=== PATIENT | female | born 1990 | race Caucasian/White ===

== ENCOUNTER 2016-10-22 23:14 | Emergency (ER) | payer OTHER ==
[~2016-10-22] VITALS: Ht 162.6 cm; Wt 53.5 kg
[2016-10-22 23:29] VITALS: BP 109/77
--- NOTE | 2016-10-22 23:44 | NUR ---
AMBULATED TO ER BED 8
--- NOTE | 2016-10-22 23:49 | NUR ---
Patient being evaluated by physician at bedside.
[2016-10-22] MEDS ORDERED: KETOROLAC 60 MG/2 ML VIAL IM ONE (23:50)
[2016-10-23 00:25] VITALS: BP 99/62
--- NOTE | 2016-10-23 00:25 | NUR ---
Patient discharged with v/s stable. Written and verbal after care instructions given and explained. Patient alert, oriented and verbalized understanding of instructions. Ambulatory with steady gait. All questions addressed prior to discharge. ID band removed. Patient advised to follow up with PMD. Rx of Motrin and [place] given. Patient educated on indication of medication including possible reaction and side effects. Opportunity to ask questions provided and answered.
== END 2016-10-23 00:25 | disposition home or self-care (01) ==
LOC: MED 23:14
DX: M54.5 Low back pain (principal)
CPT/HCPCS: 96372; 99283; J1885

== ENCOUNTER 2017-01-19 18:38 | Emergency (ER) | payer OTHER ==
[~2017-01-19] VITALS: Ht 165.1 cm; Wt 54.0 kg
[2017-01-19 18:48] VITALS: BP 120/71
--- NOTE | 2017-01-19 18:50 | NUR ---
Patient ambulated to bed 02.
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
--- NOTE | 2017-01-19 19:03 | NUR ---
Pt report given to WENDY BRANCH. Transfer of care at this time.
--- NOTE | 2017-01-19 19:03 | NUR ---
Sonia billings in ED - 01/19/17 at 1907 by [email or web address] Pt report given to WENDY LINARES. Transfer of care at this time.
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
[2017-01-19 20:00] VITALS: BP 120/71
--- NOTE | 2017-01-19 20:00 | NUR ---
Patient discharged with v/s stable. Written and verbal after care instructions given and explained. Patient alert, oriented and verbalized understanding of instructions. Ambulatory with steady gait. All questions addressed prior to discharge. ID band removed. Patient advised to follow up with PMD. Rx of naprosyn 500mg given. Patient educated on indication of medication including possible reaction and side effects. Opportunity to ask questions provided and answered.
== END 2017-01-19 20:00 | disposition home or self-care (01) ==
LOC: MED 18:38
DX: S60.221A Contusion of right hand, initial encounter (principal); W22.02XA Walked into lamppost, initial encounter; Y93.89 Activity, other specified; Y92.89 Other specified places as the place of occurrence of the external cause; Y99.8 Other external cause status
CPT/HCPCS: 73130; 99284

== ENCOUNTER 2017-07-05 07:58 | Emergency (ER) | payer OTHER ==
[~2017-07-05] VITALS: Ht 162.6 cm; Wt 54.4 kg
[2017-07-05 08:01] VITALS: BP 126/79
--- NOTE | 2017-07-05 08:04 | NUR ---
PT AMBULATED TO ER CHAIR C
--- NOTE | 2017-07-05 08:05 | NUR ---
26/F BIB SELF WITH C/O LEFT EYE DISCHARGE & ITCHING SINCE 0600 THIS AM. SKIN IS PINK/WARM/DRY; AAOX4 WITH EVEN AND STEADY GAIT; LUNGS CLEAR BL; HR EVEN AND REGULAR; PT DENIES ANY FEVER, CP, SOB, OR COUGH AT THIS TIME; PATIENT STATES PAIN OF 0/10 AT THIS TIME.
--- NOTE | 2017-07-05 08:13 | NUR ---
Patient being evaluated by DR MUNGUIA at bedside.
[2017-07-05 08:45] VITALS: BP 121/72
--- NOTE | 2017-07-05 08:45 | NUR ---
Patient discharged with v/s stable. Written and verbal after care instructions given and explained. Patient alert, oriented and verbalized understanding of instructions. Ambulatory with steady gait. All questions addressed prior to discharge. ID band removed. Patient advised to follow up with PMD. Rx of ERYTHROMYCIN given. Patient educated on indication of medication including possible reaction and side effects. Opportunity to ask questions provided and answered.
== END 2017-07-05 08:45 | disposition home or self-care (01) ==
LOC: MED 07:58
DX: H10.89 Other conjunctivitis (principal); A48.8 Other specified bacterial diseases
CPT/HCPCS: 99283

== ENCOUNTER 2017-12-05 18:32 | Emergency (ER) | payer OTHER ==
[~2017-12-05] VITALS: Ht 162.6 cm; Wt 55.3 kg
[2017-12-05 18:37] VITALS: BP 116/66
[2017-12-05 20:25] VITALS: BP 116/66
== END 2017-12-05 20:25 | disposition home or self-care (01) ==
LOC: MED 18:32
DX: S90.32XA Contusion of left foot, initial encounter (principal); W20.8XXA Other cause of strike by thrown, projected or falling object, initial encounter; Y93.89 Activity, other specified; Y92.89 Other specified places as the place of occurrence of the external cause; Y99.8 Other external cause status
CPT/HCPCS: 73630; 99284; Q0092

== ENCOUNTER 2018-10-06 10:25 | Emergency (ER) | payer OTHER ==
[~2018-10-06] VITALS: Ht 162.6 cm; Wt 56.7 kg
[2018-10-06 10:35] VITALS: BP 115/69
[2018-10-06] MEDS ORDERED: ALBUTEROL SULFATE/IPRATROPIU 3 ML SOL IH ONE (10:45)
[2018-10-06 11:38] VITALS: BP 118/65
== END 2018-10-06 11:38 | disposition home or self-care (01) ==
LOC: MED 10:25
DX: J40 Bronchitis, not specified as acute or chronic (principal); J30.9 Allergic rhinitis, unspecified
CPT/HCPCS: 71045; 81002; 81025; 94640; 99283; J7620

== ENCOUNTER 2019-01-20 02:58 | Emergency (ER) | payer OTHER ==
[~2019-01-20] VITALS: Ht 165.1 cm; Wt 57.6 kg
[2019-01-20 03:28] VITALS: BP 113/72
--- NOTE | 2019-01-20 03:35 | NUR ---
FLU SWAB DONE. SENT TO LAB
--- NOTE | 2019-01-20 03:40 | NUR ---
PT TAKEN TO BED 01
--- NOTE | 2019-01-20 03:45 | NUR ---
28 FEMALE BIB MOTHER C/O COUGH WITH PHLEGM X2 WEEKS WITH FLU LIKE SYMPTOMS, PT STATES FEVER TODAY. 97.6 ORAL AFEBRILE @ THIS TIME. PT WORKS @ [employer]. HAD FLU SHOT X 3 WEEKS AGO. A/OX4; BREATHING IS REGULAR; BREATH SOUNDS CLEAR/DIMINISHED. NONPRODUCTIVE COUGH THAT CAUSES PAIN IN HER CHEST. PAIN IS A 5/10 ACUTE PAIN. DENIES N/V/D. ERMD MADE AWARE OF STATUS. PULSE OXIMETER IN PLACE. 98% ON RA; 17RR. MOTHER AT BEDSIDE. SIDE RAILX1. HX: CHRONIC COUGH; IRREGULAR PERIODS RX: PHENERGAN/CODEINE, INHALER, TYLENOL PM
[2019-01-20] MEDS ORDERED: ALBUTEROL SULFATE/IPRATROPIU 3 ML SOL IH ONE (04:30)
[2019-01-20 05:10] VITALS: BP 101/55
--- NOTE | 2019-01-20 05:10 | NUR ---
DISCHARGE PAPERS GIVEN TO PT. PT STATES RELIEF. VSS. LUNGS CLEAR BILAT. COUGH PRESENT BUT NON-PRODUCTIVE. RX OF CLARITIN, AZITHROMYCIN, AND PROMETHAZINE GIVEN. SIDE EFFECTS EXPLAINED. INSTRUCTED TO F/U WITH PCP AND WHEN TO RETURN TO ER. PT VERBALLIZED UNDERSTANDING OF DC INSTRUCTIONS. ALL QEUSTIONS ANSWERED.
== END 2019-01-20 05:10 | disposition home or self-care (01) ==
LOC: MED 02:58
DX: J02.8 Acute pharyngitis due to other specified organisms (principal); B96.89 Other specified bacterial agents as the cause of diseases classified elsewhere; J30.2 Other seasonal allergic rhinitis
CPT/HCPCS: 87804; 94640; 99283; J7620

== ENCOUNTER 2020-01-30 22:51 | Emergency (ER) | payer OTHER ==
[~2020-01-30] VITALS: Ht 165.1 cm; Wt 61.2 kg
[2020-01-30 22:56] VITALS: BP 124/80
--- NOTE | 2020-01-30 23:03 | NUR ---
URINE SAMPLE COLLECTED AT THIS TIME.
--- NOTE | 2020-01-30 23:03 | NUR ---
PT AMBULATED FROM RESTROOM TO ER BED 12 W/ STEADY GAIT.
--- NOTE | 2020-01-30 23:07 | NUR ---
29 Y/O FEMALE PRESENTED TO ED C/O ABD PAIN X 1.5 MONTHS . PT STATES HER PAIN STARTS AT EPIGASTRIC REGION AND RADIATE TO LUQ. PT DESCRIBES PAIN PINCHING ,BULGING , BURNING PAIN, VARIES FROM 5 - 8 ON PAIN SCALE. PT CURRENT PAIN 8/10. PT STATES SHE HAS NORMAL STOOL, NO C/O DIARRHEA OR CONSTIPATION. PT STATES SHE HAS BEEN TAKING NATURAL SUPPLEMENTS , BLACKSEED OIL, CHAMOMILE TEA FOR TX OF ABD PAIN W/ NO RELIEF. PT HAD T/C W/ ON MONDAY AND WAS TOLD SHE WILL NEED TO GET LABS AND A H. PYLORI TEST DONE. PT SECONDARY C/O OF ABD PAIN AFTER LIFTING WEIGHTS AT GYM. PT ABD FLAT, SOFT AND NON TENDER. ACTIVE BOWEL SOUNDS. PT RESTING IN BED, LOCKED AND IN LOWEST POSITION, HOB ELEVATED, SIDE RAIL X1. PT PLACED IN GOWN AT THIS TIME. VSS. NO ACUTE DISTRESS. ERMD MADE AWARE OF PT STATUS. PMH: DENIES NKA
--- NOTE | 2020-01-30 23:13 | NUR ---
ERMD AT BEDSIDE FOR MEDICAL EVALUATION.
[2020-01-30] MEDS ORDERED: NACL 0.9% 1,000 ML IV ONE (23:30)
[2020-01-30] MEDS ORDERED: ONDANSETRON 4 MG/2 ML VIAL IVP ONE (23:30)
[2020-01-30] MEDS ORDERED: PANTOPRAZOLE 40 MG INJ VIAL IVP ONE (23:30)
[2020-01-30] MEDS ORDERED: ALUMINUM HYD/MAG/SIMETHICONE 30 ML, DICYCLOMINE HCL LIQUID 20 MG, LIDOCAINE VISCOUS 2% ... PO ONE ×3 (23:35)
--- NOTE | 2020-01-30 23:40 | NUR ---
18 G IV LT A/C PLACED. BLOOD LABS & CULTURES COLLECTED AND HANDED TO GASOLINE DRAGLINE OPERATOR.
[2020-01-30 23:49] LABS: BASOPHILS # (AUTO) 0.1 K/uL (0.00-0.22); BASOPHILS % (AUTO) 0.6 % (0.0-2.0); EOSINOPHILS # (AUTO) 0.2 K/uL (0-0.4); EOSINOPHILS % (AUTO) 1.7 % (0.0-4.0); HEMATOCRIT 41.7 % (36-48); HEMOGLOBIN 14.3 g/dL (12.0-16.0); LYMPHOCYTES # (AUTO) 3.3 K/uL (2.5-16.5); LYMPHOCYTES % (AUTO) 29.9 % (20.5-51.1); MEAN CORPUSCULAR HEMOGLOBIN 30 pg (27-31); MEAN CORPUSCULAR HGB CONC 34 g/dL (33-37); MEAN CORPUSCULAR VOLUME 88.1 fL (80-94); MONOCYTES % (AUTO) 8.8 % (1.7-9.3); NEUTROPHILS # (AUTO) 6.6 K/uL (1.8-7.7); PLATELET COUNT (AUTO) 331 K/uL (140-450); RED BLOOD CELL COUNT(AUTO) 4.73 MIL/uL (4.20-5.40); RED CELL DISTRIBUTION WIDTH 12.4 % (11.6-13.7); WHITE BLOOD COUNT (AUTO) 11.2 K/uL (4.8-10.8)
--- NOTE | 2020-01-30 23:53 | NUR ---
PT TAKEN TO CT VIA W/C
[2020-01-30] MEDS ORDERED: LIDOCAINE VISCOUS 2% 20 ML UDC ONE (23:54)
[2020-01-30] MEDS ORDERED: DICYCLOMINE HCL LIQUID 10 MG/5 ML UDC ONE (23:55)
[2020-01-30] MEDS ORDERED: ALUMINUM HYD/MAG/SIMETHICONE 30 ML UDC ONE (23:55)
[2020-01-31 00:05] LABS: ALBUMIN 4.5 g/dL (3.4-5.0); ANION GAP 13.3 (8-16); CARBON DIOXIDE 27.3 mmol/L (21-32); CREATININE 0.6 mg/dL (0.6-1.3); POTASSIUM 3.6 mmol/L (3.5-5.1); TOTAL BILIRUBIN 0.3 mg/dL (0.0-1.0)
--- NOTE | 2020-01-31 00:18 | NUR ---
PT AMBUALTED FROM RESTROOM TO BED 12 WITH STEADY GAIT.
[2020-01-31 00:47] LABS: APPEARANCE,URINE CLEAR (CLEAR); BILIRUBIN,URINE NEGATIVE (NEGATIVE); BLOOD, URINE TRACE-I (NEGATIVE); COLOR,URINE YELLOW (YELLOW); LEUKOCYTE ESTERASE ,URINE NEGATIVE (NEGATIVE); NITRITE, URINE NEGATIVE (NEGATIVE); UGLUCOSE NEGATIVE (NEGATIVE)
--- NOTE | 2020-01-31 01:00 | NUR ---
PER PT THE ADMINISTERED GI COCKTAIL HELPED PT FEEL A LOT BETTER. KACEYD MADE AWARE.
--- NOTE | 2020-01-31 01:04 | NUR ---
EKG PERFORMED BY WENDY.
--- NOTE | 2020-01-31 01:10 | NUR ---
IV removed, catheter intact and site benign. Applied folded 4x4 gauze and tape to stop bleeding.
[2020-01-31 01:28] VITALS: BP 120/78
--- NOTE | 2020-01-31 01:28 | NUR ---
Patient discharged with v/s stable. Written and verbal after care instructions given and explained. Patient alert, oriented and verbalized understanding of instructions. Ambulatory with steady gait. All questions addressed prior to discharge. ID band removed. Patient advised to follow up with PMD. Rx of Protonix given. Patient educated on indication of medication including possible reaction and side effects. Opportunity to ask questions provided and answered.
[2020-01-31 01:44] LABS: RBC,URINE 0-5 /HPF (0-5); WBC,URINE 0-5 /HPF (0-5)
== END 2020-01-31 01:28 | disposition home or self-care (01) ==
LOC: MED 22:51
DX: R10.13 Epigastric pain (principal)
CPT/HCPCS: 36415; 74176; 80053; 81001; 81025; 83605; 83690; 84484; 85025; 93005; 96361; 96374; 96375; 99285; C9113; J2405; J7030

== ENCOUNTER 2020-03-02 15:24 | Emergency (ER) | payer OTHER ==
[~2020-03-02] VITALS: Ht 162.6 cm; Wt 55.8 kg
[2020-03-02 15:54] VITALS: BP 121/88
--- NOTE | 2020-03-02 15:59 | NUR ---
triaged and waiting in lobby.
[2020-03-02] MEDS ORDERED: KETOROLAC 30 MG/ML VIAL IM ONE (16:00)
[2020-03-02] MEDS ORDERED: HYDROcodone/APAP 5/325 MG 1 TAB TAB PO ONE (16:00)
[2020-03-02] MEDS ORDERED: HYDROcodone/APAP 5/325 MG 1 TAB TAB ONE (16:00)
--- NOTE | 2020-03-02 16:03 | NUR ---
taken to XR
[2020-03-02 17:09] VITALS: BP 121/88
--- NOTE | 2020-03-02 17:10 | NUR ---
Patient discharged with v/s stable. Written and verbal after care instructions given and explained. Patient alert, oriented and verbalized understanding of instructions. Ambulatory with steady gait. All questions addressed prior to discharge. ID band removed. Patient advised to follow up with PMD. Rx of Ibuprofen 600mg given. Patient educated on indication of medication including possible reaction and side effects. Opportunity to ask questions provided and answered.
== END 2020-03-02 17:10 | disposition home or self-care (01) ==
LOC: MED 15:24
DX: S60.222A Contusion of left hand, initial encounter (principal); W22.8XXA Striking against or struck by other objects, initial encounter; Y93.89 Activity, other specified; Y92.89 Other specified places as the place of occurrence of the external cause; Y99.8 Other external cause status
CPT/HCPCS: 73130; 99283

== ENCOUNTER 2020-10-11 13:44 | Emergency (ER) | payer OTHER ==
[~2020-10-11] VITALS: Ht 162.6 cm; Wt 59.0 kg
[2020-10-11 13:52] VITALS: BP 121/69
[2020-10-11] MEDS ORDERED: ONDANSETRON 4 MG/2 ML VIAL IVP ONE (15:55)
[2020-10-11] MEDS ORDERED: NACL 0.9% 1,000 ML IV ONE (15:55)
[2020-10-11] MEDS ORDERED: ONDANSETRON 4 MG ODT PO ONE (18:45)
--- NOTE | 2020-10-11 19:31 | NUR ---
changed Zofran order to ODT due to unanavailable bed to start IV at this time. Pt reported in lobby pt was able to tolerate water and crackers. Pt denies nausea at this time.
[2020-10-11] MEDS ORDERED: ONDA-24 SL (19:38)
[2020-10-11 19:50] VITALS: BP 115/73
--- NOTE | 2020-10-11 19:50 | NUR ---
Patient discharged with v/s stable. Written and verbal after care instructions given and explained. Patient alert, oriented and verbalized understanding of instructions. Ambulatory with steady gait. All questions addressed prior to discharge. ID band removed. Patient advised to follow up with PMD. Rx of ZOFRAN ODT given. Patient educated on indication of medication including possible reaction and side effects. Opportunity to ask questions provided and answered.
== END 2020-10-11 19:50 | disposition home or self-care (01) ==
LOC: MED 13:44
DX: R11.2 Nausea with vomiting, unspecified (principal); R10.9 Unspecified abdominal pain; K21.9 Gastro-esophageal reflux disease without esophagitis; Z79.899 Other long term (current) drug therapy
CPT/HCPCS: 81002; 81025; 99282; Q0162

== ENCOUNTER 2021-01-03 11:48 | Emergency (ER) | payer OTHER ==
[~2021-01-03] VITALS: Ht 162.6 cm; Wt 59.0 kg
[~2021-01-03 11:48] MED LIST: ONDA-188 SL
[2021-01-03 12:09] VITALS: BP 120/62
--- NOTE | 2021-01-03 12:19 | NUR ---
PT TAKEN TO LOBBY TO WAIT.
--- NOTE | 2021-01-03 12:47 | NUR ---
30 Y/O FEMALE C/O RIGHT ANKLE PAIN 10/13 NON-RADIATING S/P DANCING AT [employer] EVENT X1DAY. DENIES RX PRIOR TO ARRIVAL. DENIES FEVER/[place]. DENIES N/V. DENIES PMH NKA
[2021-01-03] MEDS ORDERED: NAPR-54 PO (12:54)
[2021-01-03] MEDS ORDERED: KETOROLAC 30 MG/ML VIAL IM ONE (13:05)
[2021-01-03 13:23] VITALS: BP 120/62
--- NOTE | 2021-01-03 13:23 | NUR ---
Patient discharged with v/s stable. Written and verbal after care instructions given and explained. Patient alert, oriented and verbalized understanding of instructions. Wheel Chair Assisted with to car. All questions addressed prior to discharge. ID band removed. Patient advised to follow up with PMD. Rx of NAPROXEN given. Patient educated on indication of medication including possible reaction and side effects. Opportunity to ask questions provided and answered.
== END 2021-01-03 13:23 | disposition home or self-care (01) ==
LOC: MED 11:48
DX: S93.401A Sprain of unspecified ligament of right ankle, initial encounter (principal); K21.9 Gastro-esophageal reflux disease without esophagitis; Z79.899 Other long term (current) drug therapy; X50.1XXA Overexertion from prolonged static or awkward postures, initial encounter; Y93.41 Activity, dancing; Y92.89 Other specified places as the place of occurrence of the external cause; Y99.8 Other external cause status
CPT/HCPCS: 73610; 96372; 99283; J1885

== ENCOUNTER 2021-11-20 18:06 | Emergency (ER) | payer OTHER ==
[~2021-11-20] VITALS: Ht 162.6 cm; Wt 62.6 kg
[~2021-11-20 18:06] MED LIST changes: +NAPR-54 PO
[2021-11-20 18:09] VITALS: BP 106/79
--- NOTE | 2021-11-20 18:13 | NUR ---
PT TAKEN TO X RAY VIA W/C.
--- NOTE | 2021-11-20 18:23 | NUR ---
30 y/o female, pt presents to ed with c/o right ankle pain after fall today. denies loc, syncope. a&ox4, ambulates with assist. skin pink/warm/dry. pmh: gastritis nka
--- NOTE | 2021-11-20 18:24 | NUR ---
pt returned from xray via wheelchair and placed in bed 09 at this time
[2021-11-20] MEDS ORDERED: KETOROLAC 30 MG/ML VIAL IM ONE (18:35)
[2021-11-20] MEDS ORDERED: ACET-10509 PO ×2 (18:45→19:17)
[2021-11-20 19:02] VITALS: BP 106/79
--- NOTE | 2021-11-20 19:04 | NUR ---
Patient discharged with v/s stable. Written and verbal after care instructions given and explained. Patient alert, oriented and verbalized understanding of instructions. Wheel Chair Assisted with to car. All questions addressed prior to discharge. ID band removed. Patient advised to follow up with PMD. Rx of tylenol (sent) given. Patient educated on indication of medication including possible reaction and side effects. Opportunity to ask questions provided and answered.
--- NOTE | 2021-11-20 19:08 | NUR ---
work note copy and xray given
== END 2021-11-20 19:04 | disposition home or self-care (01) ==
LOC: MED 18:06
DX: S93.401A Sprain of unspecified ligament of right ankle, initial encounter (principal); W18.30XA Fall on same level, unspecified, initial encounter; Y93.89 Activity, other specified; Y92.89 Other specified places as the place of occurrence of the external cause; Y99.8 Other external cause status
CPT/HCPCS: 73610; 96372; 99283; J1885

== ENCOUNTER 2022-04-11 08:00 | Emergency (ER) | payer OTHER ==
[~2022-04-11] VITALS: Ht 162.6 cm; Wt 65.3 kg
[~2022-04-11 08:00] MED LIST changes: +ACET-10509 PO
[2022-04-11 08:12] VITALS: BP 126/63
--- NOTE | 2022-04-11 08:16 | NUR ---
31 y/o female bib self, c/o low back pain radiates to hips and legs, states she was dx with sciatica in february and has been having chronic pain. states pain was gotten better with stretching/exercise, but started to worsen after pulling/twisting motion 3 days ago when lifting heavy furniture with family. 12/13 pain. a&ox4, ambulates with steady gait. pmh: sciatica nka med: bandaid max (last night, no relief)
[2022-04-11] MEDS ORDERED: methocarbamoL 500 MG TAB PO STA (08:22)
[2022-04-11] MEDS ORDERED: methylPREDNISolone SS 125 MG in WATER STERILE 2 ML IM ONE (08:55)
[2022-04-11] MEDS ORDERED: KETOROLAC 15 MG/ML VIAL IM ONE (08:55)
[2022-04-11] MEDS ORDERED: methylPREDNISolone SS 125 MG/2 ML VIAL ONE (08:58)
[2022-04-11] MEDS ORDERED: KETOROLAC 15 MG/ML VIAL ONE (08:58)
[2022-04-11] MEDS ORDERED: LID5T TP (09:51)
[2022-04-11] MEDS ORDERED: IBUP-2213 PO (09:51)
[2022-04-11] MEDS ORDERED: METH-1681 PO (09:51)
[2022-04-11] MEDS ORDERED: PRED20TA5 PO (09:51)
[2022-04-11 10:05] VITALS: BP 129/75
== END 2022-04-11 10:10 | disposition home or self-care (01) ==
LOC: MED 08:00
DX: M54.17 Radiculopathy, lumbosacral region (principal); G89.29 Other chronic pain; K21.9 Gastro-esophageal reflux disease without esophagitis; Z79.899 Other long term (current) drug therapy
CPT/HCPCS: 81025; 96372; 99284; J1885; J2930

== ENCOUNTER 2023-03-22 19:20 | Emergency (ER) | payer BC, OTHER ==
[~2023-03-22] VITALS: Ht 160 cm; Wt 67.1 kg
[~2023-03-22 19:20] MED LIST changes: +IBUP-2213 PO; +LID5T TP; +METH-1681 PO; +PRED20TA5 PO
[2023-03-22 19:45] VITALS: BP 122/66; PULSE 76; RESP 18; TEMP 98.1; O2SAT 97
[2023-03-22] MEDS ORDERED: SUCR1TAB35 PO (21:41)
[2023-03-22] MEDS ORDERED: FAMO-92 PO (21:41)
[2023-03-22] MEDS ORDERED: PANT40EC PO (21:41)
[2023-03-22 22:30] VITALS: BP 122/66; PULSE 76; RESP 18; TEMP 98.1; O2SAT 97
== END 2023-03-22 22:30 | disposition home or self-care (01) ==
LOC: MED 19:20
DX: K29.70 Gastritis, unspecified, without bleeding (principal); Z79.899 Other long term (current) drug therapy
CPT/HCPCS: 99283

== ENCOUNTER 2023-06-03 00:42 | Emergency (ER) | payer BC, OTHER ==
[~2023-06-03] VITALS: Ht 162.6 cm; Wt 65.8 kg
[~2023-06-03 00:42] MED LIST changes: +FAMO-92 PO; +PANT40EC PO; +SUCR1TAB35 PO
[2023-06-03 00:50] VITALS: BP 106/67; PULSE 100; RESP 20; TEMP 99.8; O2SAT 98
[2023-06-03 01:58] LABS: FLU A ANTIGEN negative (NEGATIVE); FLU B ANTIGEN negative (NEGATIVE)
[2023-06-03] MEDS ORDERED: AZIT250T4 PO (02:31)
[2023-06-03 03:30] VITALS: BP 106/67; PULSE 100; RESP 20; TEMP 99.8; O2SAT 98
== END 2023-06-03 03:20 | disposition home or self-care (01) ==
LOC: MED 00:42
DX: J20.9 Acute bronchitis, unspecified (principal); Z20.822 Contact with and (suspected) exposure to COVID-19; Z79.899 Other long term (current) drug therapy
CPT/HCPCS: 71046; 99284